=== PATIENT | female | born 1940 | race Caucasian/White ===

== ENCOUNTER 2022-05-11 10:36 | Emergency (ER) | payer MEDICARE, BC, SELFPAY ==
[2022-05-11 10:53] VITALS: BP 172/84; PULSE 58; RESP 18; TEMP 36.6; O2SAT 100; BMI 27.5
--- NOTE | 2022-05-11 11:23 | ED_ITS ---
HPI - General Adult General Chief complaint: Weakness Stated complaint: Lightheaded, weak Time Seen by Provider: 05/11/22 11:05 Source: family Mode of arrival: wheelchair History of Present Illness HPI narrative: Patient is an 81-year-old female with a history of Alzheimer's who presents to the ED today after feeling faint while visiting her on the medical unit. He had shoulder surgery yesterday and she was here visiting him today. She does live independently with her , daughter has been staying with her since yesterday and plans to stay with them until Saturday. When they were visiting him the daughter states that Delma felt faint and said that her head was spinning. Delma states that she feels awful now. Really rather difficult to obtain any more details given patient's baseline mental status. According to her daughter she does not appear to have altered mental status aside from her baseline at this point. She gets around at home with a walker but has episodes where she feels so weak that she has to sit down. There have been no recent signs of illness including fevers, chest pain, abdominal discomfort. No diarrhea that the daughters aware of or that the patient describes. Related Data Home Medications Medication Instructions Recorded Confirmed albuterol 90 mcg/actuation aerosol mcg inhalation 05/11/22 inhaler ascorbic acid (vitamin C) 500 mg 500 mg PO DAILY 05/11/22 05/11/22 chewable tablet (Acerola C) calcium 600 mg-D3 800 unit-mag11 1 tab PO DAILY 05/11/22 05/11/22 50 ra-pbtg-piliey-norberto-s.borat tablet (Caltrate 600-D Plus Minerals) citalopram 10 mg tablet mg 05/11/22 diltiazem HCl 240 mg mg PO 05/11/22 capsule,extended release 24 hr, controlled (DILT-XR) donepezil 10 mg tablet mg 05/11/22 donepezil 5 mg tablet mg 05/11/22 fluocinonide 0.05 % topical cream 1 applic topical BID-TID PRN 05/11/22 05/11/22 fluticasone propionate 110 1 inh inhalation BID 05/11/22 05/11/22 mcg/actuation HFA aerosol inhaler (Flovent HFA) glucosamine ml PO 05/11/22 HCl-methylsulfonylmethane 1,500 mg-500 mg/30 mL liquid ketoconazole 2 % shampoo 1 applic topical Q14D 05/11/22 05/11/22 peg 400-propylene glycol (PF) 0.4 1 drp ophthalmic (eye) DAILY PRN 05/11/22 05/11/22 %-0.3 % eye drops in a dropperette (Systane Hydration PF) warfarin 5 mg tablet mg 05/11/22 Allergies Allergy/AdvReac Type Severity Reaction Status Date / Time acetaminophen [From Vicodin] Allergy Chest Pain Verified 05/11/22 11:18 hydrocodone [From Vicodin] Allergy Chest Pain Verified 05/11/22 11:18 enoxaparin AdvReac Verified 05/11/22 11:18 melon AdvReac Nausea Verified 05/11/22 11:18 Review of Systems Status of ROS: Reports: unobtainable due to mental status PFSH PFS Social History Smoking Status: Never smoker How often do you have a drink containing alcohol: never AUDIT-C Alcohol total score: 0 Non-prescribed substance use: denies use Exam Narrative: Exam Narrative: Well-nourished, elderly patient in no acute distress. She can answer questions generally with yes or no. She does state that she feels awful when I ask her how she feeling. She tells me that nothing hurts but then tells me that her whole body hurts including her chest and her legs. HEENT: Normocephalic atraumatic. Pupils are constricted but reactive.. Extraocular muscles are intact. Conjunctivae are moist without any icterus noted. Moist mucous membranes. Posterior pharynx is normal. Neck is soft without any lymphadenopathy or thyromegaly. No masses are appreciated. Cardiovascular: Heart is regular rate and rhythm S1 and S2 are present without any murmurs. Lungs: Clear to auscultation bilaterally no wheezes rhonchi or rales are appreciated. Patient takes deep breaths without any discomfort. Abdomen: Soft and nontender nondistended with normal bowel sounds. No guarding or rebound. No masses or organomegaly appreciated. Extremities: Bilateral lower extremities have trace edema. Normal DP and PT pulses. Skin: Well perfused without any obvious rashes. Unable to assess for strength as patient does not move either of her legs when I ask her to. She moves both of her upper extremities, but she cannot keep them elevated against any resistance whatsoever. Reflexes are 2+ and symmetric at the knees. Cranial nerves 3-12 are grossly normal. There is no nystagmus either horizontally or vertically. Again, when asked the daughter if this is patient's baseline she states that nothing she is doing right now seems abnormal to her. Const: Vital Signs, click to edit/add: Vital Signs - 24 hr 05/11/22 10:53 Temperature 97.8 F Pulse Rate [Right Pulse Oximeter] 58 L Respiratory Rate 18 Blood Pressure [Ri ght Upper Arm] 172/84 H Pulse Oximetry 100 Oxygen Delivery Me thod Room Air Course Course Hospital Course: IV established labs were drawn. EKG was done which showed sinus bradycardia with a pulse of [address] changes. Labs were unremarkable. Patient did seem to perk up while she was here she was conversing more seem to be in good spirits. She did urinate a couple times unfortunately we were unable to use the specimen for multiple reasons. Did discuss with the daughter the potential of a UTI causing similar symptoms, however they did not want wait around any longer at this time. They did understand that if anything should change or become worse they would return and daughter felt comfortable taking her mother home at this time. Vital Signs Vital signs: Initial Vital Signs Temperature 97.8 F 05/11/22 10:53 Temperature Source Temporal Artery Scan 05/11/22 10:53 Pulse Rate 58 L 05/11/22 10:53 Pulse Rhythm 05/11/22 10:53 Respiratory Rate 18 05/11/22 10:53 Blood Pressure 172/84 H 05/11/22 10:53 Blood Pressure Mean 113 05/11/22 10:53 Blood Pressure Position Sitting 05/11/22 10:53 Pulse Oximetry 100 05/11/22 10:53 Oxygen Delivery Method 05/11/22 10:53 Vital Signs Temperature 97.8 F 05/11/22 10:53 Pulse Rate 58 L 05/11/22 10:53 Respiratory Rate 18 05/11/22 10:53 Blood Pressure 172/84 H 05/11/22 10:53 Pulse Oximetry 100 05/11/22 10:53 Oxygen Delivery Method 05/11/22 10:53 Temperature 97.8 F 05/11/22 10:53 Pulse Rate 58 L 05/11/22 10:53 Respiratory Rate 18 05/11/22 10:53 Blood Pressure 172/84 H 05/11/22 10:53 Pulse Oximetry 100 05/11/22 10:53 Oxygen Delivery Method 05/11/22 10:53 Medical Decision Making MDM Narrative Medical decision making narrative: Episode of feeling not well, weak, lightheaded. Now resolved. Patient will be discharged home to the care of her daughter. Medical Records Medical records reviewed: Yes I reviewed the patient's medical records Lab Data Lab results reviewed: Yes I reviewed the patient's lab results Labs: Lab Results 05/11/22 05/11/22 05/11/22 Range/Units 11:35 11:35 11:35 WBC 6.81 (4.50-11.00) K/uL RBC 5.05 (4.00-5.20) m/uL Hgb 15.0 (12.0-16.0) gm/dL Hct 45.1 (33.0-51.0) % MCV 89 (80-100) fL MCH 30 (26-34) pg MCHC 33 (32-36) gm/dL RDW Coeff of Roney 12.8 (11.5-15.5) % Plt Count 274 (140-440) K/uL Neut % (Auto) 70.4 (42.0-72.0) % Lymph % (Auto) 20.3 (20-44) % [place] % (Auto) 7.2 (0.0-11.0) % Eos % (Auto) 1.5 (0.0-7.0) % Baso % (Auto) 0.6 (0.0-3.0) % Neut # (Auto) 4.80 (1.7-7.0) K/uL Lymph # (Auto) 1.38 (0.90-2.90) K/uL [place] # (Auto) 0.50 (0.00-0.90) K/UL Eos # (Auto) 0.10 (0.00-0.50) K/uL Baso # (Auto) 0.04 (0.00-0.30) K/uL Abs Immat Gran (auto) 0.00 (0.00-0.30) K/uL ESR 8 (2-20) mm/hr Sodium 138 (135-149) mmol/L Potassium 3.9 (3.6-5.1) mmol/L Chloride 103 (96-114) mmol/L Carbon Dioxide 25 (20-32) mmol/L BUN 18 (7-30) mg/dL Creatinine 0.7 (0.5-1.5) mg/dL Estimated Creat Clear 37.12 Estimated GFR 87 ml/min Glucose 112 (60-115) mg/dL Lactate (0.5-1.9) mmol/L Calcium 9.7 (8.4-10.6) mg/dL Total Bilirubin 0.7 (0.1-1.5) mg/dL Direct Bilirubin 0.1 (0.0-0.5) mg/dL AST 27 (12-35) U/L ALT 16 (4-35) U/L Alkaline Phosphatase 131 (40-150) U/L C-Reactive Protein < 0.5 L (0.5-1.0) mg/dL Total Protein 8.0 (6.0-8.3) g/dL Albumin 4.5 (3.3-5.0) g/dL SARS-CoV-2 (PCR) (Negative) Influenza Type A (PCR) (Negative) Influenza Type B (PCR) (Negative) POC Troponin I (0.01-0.04) ng/ml 05/11/22 05/11/22 05/11/22 Range/Units 11:35 11:35 11:35 WBC (4.50-11.00) K/uL RBC (4.00-5.20) m/uL Hgb (12.0-16.0) gm/dL Hct (33.0-51.0) % MCV (80-100) fL MCH (26-34) pg MCHC (32-36) gm/dL RDW Coeff of Roney (11.5-15.5) % Plt Count (140-440) K/uL Neut % (Auto) (42.0-72.0) % Lymph % (Auto) (20-44) % [place] % (Auto) (0.0-11.0) % Eos % (Auto) (0.0-7.0) % Baso % (Auto) (0.0-3.0) % Neut # (Auto) (1.7-7.0) K/uL Lymph # (Auto) (0.90-2.90) K/uL [place] # (Auto) (0.00-0.90) K/UL Eos # (Auto) (0.00-0.50) K/uL Baso # (Auto) (0.00-0.30) K/uL Abs Immat Gran (auto) (0.00-0.30) K/uL ESR (2-20) mm/hr Sodium (135-149) mmol/L Potassium (3.6-5.1) mmol/L Chloride (96-114) mmol/L Carbon Dioxide (20-32) mmol/L BUN (7-30) mg/dL Creatinine (0.5-1.5) mg/dL Estimated Creat Clear Estimated GFR ml/min Glucose (60-115) mg/dL Lactate 1.7 (0.5-1.9) mmol/L Calcium (8.4-10.6) mg/dL Total Bilirubin (0.1-1.5) mg/dL Direct Bilirubin (0.0-0.5) mg/dL AST (12-35) U/L ALT (4-35) U/L Alkaline Phosphatase (40-150) U/L C-Reactive Protein (0.5-1.0) mg/dL Total Protein (6.0-8.3) g/dL Albumin (3.3-5.0) g/dL SARS-CoV-2 (PCR) Negative SARS-CoV-2 (Negative) Influenza Type A (PCR) Negative PCR FLU A (Negative) Influenza Type B (PCR) Negative PCR FLU B (Negative) POC Troponin I 0.00 L (0.01-0.04) ng/ml ECG Data Attestation: I personally reviewed and interpreted this ECG as follows: (Sinus bradycardia, pulse 58) Discharge Plan Discharge Clinical Impression: Light-headed Patient Disposition: Home w/ Parent or Adult Condition: Improved Additional Instructions: Stay well hydrated and get plenty of rest. Make sure the nutritious meals. Return to the ER if you develop increasing weakness, fever or vomiting. Prescriptions: No Action donepezil 5 mg tablet Label Comments: TAKE ONE TABLET BY MOUTH EVERY MORNING ALONG WITH A 10 MG TO ARRIVE AT 15 MG DOSE diltiazem HCl [DILT-XR] 240 mg capsule,ext.rel 24h degradable PO Label Comments: TAKE ONE CAPSULE BY MOUTH EVERY DAY citalopram 10 mg tablet Label Comments: TAKE ONE TABLET BY MOUTH EVERY DAY donepezil 10 mg tablet Label Comments: TAKE ONE TABLET BY MOUTH EVERY MORNING warfarin 5 mg tablet Label Comments: TAKE 1/2 TABLET BY MOUTH ON MON., WED., FRI. AND TAKE 1 TABLET DAILY ALL OTHER DAYS OF THE WEEK Caltrate 600-D Plus Minerals 600 mg calcium- 800 unit-50 mg tablet 1 tab PO DAILY albuterol 90 mcg/actuation aerosol inhalation Systane Hydration PF 0.4-0.3 % dropperette 1 drp ophthalmic (eye) DAILY PRN ascorbic acid (vitamin C) [Acerola C] 500 mg tablet,chewable 500 mg PO DAILY ketoconazole 2 % shampoo 1 applic topical Q14D glucosamine-methylsulfonylmeth 1,500-500 mg/30 mL liquid PO fluocinonide 0.05 % cream 1 applic topical BID-TID PRN fluticasone propionate [Flovent HFA] 110 mcg/actuation HFA aerosol inhaler 1 inh inhalation BID Follow Up/Referrals: Provider,Not a Local [Primary Care Provider] - Stand Alone Forms: [facility] Info Instructions
[2022-05-11 11:47] LABS: Lactate* 1.7 mmol/L (0.5-1.9)
[2022-05-11 11:53] LABS: Basophils Absolute Auto 0.04 K/uL (0.00-0.30); Basophils Percent Auto 0.6 % (0.0-3.0); Eosinophils Percent Auto 1.5 % (0.0-7.0); Hematocrit 45.1 % (33.0-51.0); Lymphocytes Absolute Auto 1.38 K/uL (0.90-2.90); Lymphocytes Percent Auto 20.3 % (20-44); Mean Corpuscular HGB Conc 33 gm/dL (32-36); Mean Corpuscular Hemoglobin 30 pg (26-34); Mean Corpuscular Volume 89 fL (80-100); Monocytes Percent Auto 7.2 % (0.0-11.0); Neutrophils Percent Auto 70.4 % (42.0-72.0); Platelet Count* 274 K/uL (140-440); RDW Coefficient of Variation % 12.8 % (11.5-15.5); Red Blood Count 5.05 m/uL (4.00-5.20); White Blood Count* 6.81 K/uL (4.50-11.00)
[2022-05-11 12:00] VITALS: BP 152/78; PULSE 69; RESP 12; O2SAT 98
[2022-05-11 12:00] LABS: Slide Review Reflex No
[2022-05-11 12:06] LABS: Chloride* 103 mmol/L (96-114)
[2022-05-11 12:07] LABS: Albumin* 4.5 g/dL (3.3-5.0); Potassium* 3.9 mmol/L (3.6-5.1); Sodium* 138 mmol/L (135-149)
[2022-05-11 12:10] LABS: Alkaline Phosphatase* 131 U/L (40-150); Aspartate Amino Transferase* 27 U/L (12-35); Bilirubin Direct* 0.1 mg/dL (0.0-0.5); Bilirubin Total* 0.7 mg/dL (0.1-1.5); Blood Urea Nitrogen* 18 mg/dL (7-30); Carbon Dioxide* 25 mmol/L (20-32); Creatinine* 0.7 mg/dL (0.5-1.5); Est. Creatinine Clearance* 37.12; Estimated Glomerular Filt Rate 87 ml/min
[2022-05-11 12:11] LABS: Alanine Aminotransferase* 16 U/L (4-35); Calcium* 9.7 mg/dL (8.4-10.6); Glucose* 112 mg/dL (60-115)
[2022-05-11 12:14] LABS: C Reactive Protein* < 0.5 mg/dL (0.5-1.0)
[2022-05-11 12:25] LABS: PCR FLU A Negative PCR FLU A (Negative); PCR FLU B Negative PCR FLU B (Negative)
[2022-05-11 12:30] LABS: SARS PCR* Negative SARS-CoV-2 (Negative)
[2022-05-11 12:47] LABS: Erythrocyte SedimentationRate* 8 mm/hr (2-20)
[2022-05-11 14:00] VITALS: BP 161/89; PULSE 64; RESP 12; TEMP 36.6; O2SAT 99
--- NOTE | 2022-05-14 13:25 | PC.SOCIAL ---
Sent pt.'s ED note to [facility] in [place] per family request so pt. can be assessed for their respite apartment in the memory care while her spouse is at a SNF for rehab.
== END 2022-05-11 14:40 | disposition home or self-care (01) ==
PROVIDERS: Emergency Provider Family Medicine
DX: R42 Dizziness and giddiness (principal); R53.1 Weakness
CPT/HCPCS: 36415; 80048; 80076; 81001; 83605; 84484; 85025; 85651; 86140; 87086; 87502; 87635; 93005; 99283; 99284

== ENCOUNTER 2022-08-06 09:34 | Outpatient (RCR) | payer MEDICARE, BC, SELFPAY ==
--- NOTE | 2022-08-06 11:13 | PT.OPEX ---
PT [facility] Eval PT [facility] Outpatient Eval Start: 08/06/22 07:57 Freq: Status: Active Protocol: Document 08/06/22 07:57 KLV (Rec: 08/06/22 10:30 KLV [id number]) E-signed By Preethi Antonio, PT Physical Therapy Outpatient Evaluation Insurance Information Recert Due Date 10/31/22 Insurance Name Medicare B,[employer] Medical Diagnosis Left knee unilateral primary osteoarthritis Treating Diagnosis Left knee pain, limited knee ROM, impaired quad strength Referring Cole Gamble Subjective Subjective Delma (accompanied by Karthik) reports to PT with primary complaint of left knee pain with initial onset 2018 when she tripped up a flight of stairs and landed on her knees. Both knees hurt following this but right seemed to recover better than the left. She has not had any known treatment for this. She does wear tubigrip which helps some with the pain. MD would like to try to treat conservatively at this time however if things do not improve next step would be cortisone injection or knee replacement. 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 She does wear glasses with limited assistance in her vision. She ambulates with NBQC. Main limitations are getting up/ down from a chair, stair negotiation, walking on uneven surfaces. She has 3 stairs to enter house with grab bar that she relies heavily on. She mainly uses them to go outside to feed her cats outside. is not around to assist with this. She does not drive, able to dress herself however in charge of all other daily chores. X-rays: AP, lateral and a single patellofemoral axial view from our [facility] dated 01/22/2022 are reviewed. These show chondrocalcinosis of both menisci there is medial and patellofemoral compartment joint space narrowing, not [id number], and osteophytic spurring. Pain Comments -12/31 Current Work Status Retired Objective Other/Pertinent Objective Knee ROM: -R 0-3-122 -L 0-8-111 pain at end range flexion medial>lateral joint line All ligamentous testing - Palpation: TTP medial>lateral L knee joint line Patellar mobility: hypomobile all directions and painful with lateral mobilization ( pressure medially) Mild joint effusion medially No ecchymosis or pitting edema Sit to stand transition: NBOS, R lateral trunk lean Stair negotiation: able to perform reciprocally however heavy reliance on railings and feeling from feet to assess where edge of step is d/t poor visual acuity LE Strength (R/L): -Knee Ext: R: 5/5, L: 4+/5 -Knee Flex: R: 5/5, L: 4/5 with pain anteriorly -Hip Abd: R: 4/5, L: 4/5 -Hip Ext: R: 4/5, L: 4/5 -Hip Flx: R: 4/5, L: 4-/5 Hip ROM WNL B Gait: use of NBQC in R UE, no observable LOB, difficulty sequencing cane 50% of the time, mid foot stike and limited TKE L LE Functional Test Performed & Score LEFS: 28/80 Assessment Assessment/Impression Patient is an 82 year old female presenting to physical therapy for evaluation and treatment of left knee pain complicated by arthritis, dementia, poor visual acuity, chronic symptoms, diabetes. Patient presents with limited knee ROM, fair balance, impaired transitions, quad weakness consistent with referring diagnoses of primary osteoarthritis. These impairments are limiting the patients ability to don/doff shoes, negotiate stairs, walk on uneven surfaces, get up from a chair, stand for extended periods. Patient appears motivated to participate in PT and presents with good prognosis to improve mobility, strength, proprioception and return to functional activities with skilled physical therapy intervention. Primary Functional Limitations don/doff shoes, negotiate stairs, walk on uneven surfaces, get up from a chair, stand for extended periods Plan of Care Rehabilitation Potential Good Physical Therapy Goals In 6 weeks (09/17/22) Patient will demonstrate at least 120 deg knee flexion in order to be able to don shoes/ socks with <1/10 pain Pt will be able to walk for at least 10 minutes with <2/10 knee pain on uneven surfaces safely in order to feed outdoor cats In 12 weeks (10/29/22) Pt will be able to ascend/ descend 3 steps with reciprocal pattern with <2/10 knee pain in order to perform chores such as feeding outdoor cats Pt will be able to walk for at least 20 minutes with <1/10 knee pain on uneven surfaces in order to ambulate in community safely. Pt will demonstrate consistent HEP compliance to ensure progress in reaching established goals during course of care. Pt will exhibit 9 pt improvement in LEFS Outcome measure to demonstrate functional improvement and progress towards goals. Treatment Plan/Direct Interventions Gait Training,Ice/Cold/ Vasopneumatic,Joint Mobilization,Manual Therapy, Neuromuscular Re-ed,Self-Care/ Home Management,Therapeutic Activities,Therapeutic Exercises Frequency/Duration Every other week for 6-8 sessions Patient Will Be Discharged From Therapy Completion of LTG(s),Skills Plateau,Independent w/HEP, Independently Progressing Evaluation Billing Untimed Code Treatment Minutes 28 Complexity Moderate Certification Information Initial Certification Date 08/06/22 Ending Certification Date 10/31/22 Provider Signature Shows Agreement With POC & Medical Necessity Physician Signature & Date Requested Please Sign/Date Here Physician Comment/Change : Physician NPI Number #
== END 2022-09-18 13:14 | disposition home or self-care (01) ==
PROVIDERS: Visit Provider Orthopaedic Surgery
DX: M17.12 Unilateral primary osteoarthritis, left knee (principal); Z51.89 Encounter for other specified aftercare
CPT/HCPCS: 97110; 97161; 97162